=== PATIENT | female | born 1945 | race Caucasian/White ===

== ENCOUNTER 2020-05-10 08:34 | Emergency (ER) | payer MEDICARE, MEDICAID ==
[~2020-05-10] VITALS: Ht 162 cm; Wt 136.0 kg
[2020-05-10] MEDS ORDERED: BRIM5DRO2 OP (09:06)
[2020-05-10] MEDS ORDERED: MAGN400T50 PO (09:06)
[2020-05-10] MEDS ORDERED: CLN.1T PO (09:06)
[2020-05-10] MEDS ORDERED: NLX.4V IH (09:06)
[2020-05-10] MEDS ORDERED: CITA20TA9 PO (09:06)
[2020-05-10] MEDS ORDERED: POLY17PO6 PO (09:06)
[2020-05-10] MEDS ORDERED: SIMV40TA25 PO (09:06)
[2020-05-10] MEDS ORDERED: PANT40TA52 PO (09:06)
[2020-05-10] MEDS ORDERED: CALC1TAB PO (09:06)
[2020-05-10] MEDS ORDERED: METH4TAB PO (09:06)
[2020-05-10] MEDS ORDERED: OXYC-188 PO (09:06)
[2020-05-10] MEDS ORDERED: QUET300T19 PO (09:06)
[2020-05-10] MEDS ORDERED: LORA10TA7 PO (09:06)
[2020-05-10] MEDS ORDERED: ALPR1TAB7 PO (09:06)
[2020-05-10] MEDS ORDERED: RAMI10CA69 PO (09:06)
[2020-05-10] MEDS ORDERED: FLUT15.845 NS (09:06)
[2020-05-10] MEDS ORDERED: RT-ALBUINH INH (09:06)
[2020-05-10 09:07] LABS: BASOPHILS % (AUTO) 0 % (0-10); EOSINOPHILS # (AUTO) 0.4 10^3/uL (0.0-0.3); EOSINOPHILS % (AUTO) 5 % (0-10); HEMATOCRIT 42 % (35-52); LYMPHOCYTES # (AUTO) 1.5 10^3/uL (1.0-4.0); LYMPHOCYTES % (AUTO) 18 % (12-44); MEAN CORPUSCULAR HEMOGLOBIN 31 pg (25-34); MEAN CORPUSCULAR HGB CONC 33 g/dL (32-36); MEAN CORPUSCULAR VOLUME 93 fL (80-99); MONOCYTES # (AUTO) 0.5 10^3/uL (0.0-1.0); MONOCYTES % (AUTO) 6 % (0-12); NEUTROPHILS # (AUTO) 5.9 10^3/uL (1.8-7.8); NEUTROPHILS % (AUTO) 71 % (42-75); PLATELET COUNT 247 10^3/uL (130-400); WHITE BLOOD COUNT 8.4 10^3/uL (4.3-11.0)
[2020-05-10] MEDS ORDERED: LANO454C3 TP (09:07)
[2020-05-10] MEDS ORDERED: [UNRECOGNIZED DRUG - CODE] TP (09:07)
[2020-05-10 09:19] LABS: ALBUMIN 4.1 GM/DL (3.2-4.5); CHLORIDE 103 MMOL/L (98-107); POTASSIUM 4.1 MMOL/L (3.6-5.0); SODIUM 137 MMOL/L (135-145)
[2020-05-10 09:20] LABS: CALCIUM 9.1 MG/DL (8.5-10.1)
[2020-05-10 09:20] LABS: BILIRUBIN,URINE NEGATIVE (NEGATIVE); CLARITY,URINE CLEAR; COLOR,URINE YELLOW; GLUCOSE, URINE (UA) NEGATIVE (NEGATIVE); KETONES,URINE NEGATIVE (NEGATIVE); LEUKOCYTE ESTERASE ,URINE 1+ (NEGATIVE); NITRITE,URINE NEGATIVE (NEGATIVE); PH,URINE 6.5 (5-9); PROTEIN,URINE NEGATIVE (NEGATIVE)
[2020-05-10 09:21] LABS: GLUCOSE 124 MG/DL (70-105)
[2020-05-10 09:22] LABS: TOTAL PROTEIN 7.6 GM/DL (6.4-8.2)
[2020-05-10 09:23] LABS: BILIRUBIN,TOTAL 0.4 MG/DL (0.1-1.0); CARBON DIOXIDE 25 MMOL/L (21-32)
[2020-05-10 09:25] LABS: ALKALINE PHOSPHATASE 87 U/L (40-136); CREATININE SERUM 0.86 MG/DL (0.60-1.30); GFR ESTIMATED > 60
[2020-05-10 09:26] LABS: BUN/CREATININE RATIO 19
[2020-05-10 09:27] LABS: ERYTHROCYTE SEDIMENTATION RATE 22 MM/HR (0-30)
[2020-05-10 09:28] LABS: ALANINE AMINOTRANSFERASE 18 U/L (0-55)
[2020-05-10] MEDS ORDERED: hydrOXYzine (VISTARIL/ATARAX) 25 MG capsule/tablet PO ONE (09:30)
[2020-05-10 09:42] LABS: BACTERIA,URINE TRACE /HPF; RENAL EPITHELIAL CELLS,URINE RARE /HPF
[2020-05-10 09:46] LABS: WAXY CASTS,URINE RARE /LPF
[2020-05-10 09:48] LABS: TSH (THYROID ANALYZER) 5.95 UIU/ML (0.35-4.94)
[2020-05-10 10:37] LABS: FREE T4 (FREE THYROXINE) 0.99 NG/DL (0.70-1.48)
[2020-05-10] MEDS ORDERED: LIDOCAINE 2% VISCOUS 15 ML UDC MM ONE (10:45)
[2020-05-10 10:50] LABS: INR 0.9 (0.8-1.4); PROTHROMBIN TIME PATIENT 12.5 SEC (12.2-14.7)
--- NOTE | 2020-05-10 12:06 | ED General ---
General Chief Complaint: Allergic Reaction Stated Complaint: ALLERGIC REACTION,RASH Nursing Triage Note: PT STATES SHE HAD A RASH AND WAS GIVEN EUCERIN AND CERA VE WHICH BOTH MADE THE RASH WORSE. THE RASH STARTED SEVERAL WEEKS AGO AND IS DIFUSE ON BOTH SIDES OF HER BODY. STATES IT HAS HAPPENED BEFORE AND WAS A STREP OR STAPH INFECTION. Nursing Sepsis Screen: No Definite Risk Source of Information: Patient Exam Limitations: No Limitations History of Present Illness Date Seen by Provider: May 10, 2020 Time Seen by Provider: 08:39 Initial Comments This is 74-year-old woman presents to the emergency room with primary complaint of intensely pruritic rash that started on her abdomen several weeks ago and then spread to her extremities. It has a variable appearance. On the abdomen it appears scaly and dry. On the lower extremity it it appears as linear excoriations and petechiae. On the forearms it has more of a per pruritic appearance. The rash is nonblanching. She has some associated flareups of warmth and erythema around the rash. She has tried numerous treatments. She has taken hydroxyzine for both anxiety and itching. This has been somewhat helpful. She has tried lots of topical therapies including hydrocortisone cream which has not helped. She received a steroid injection yesterday in the clinic which also did not help. She tried the samples listed above which only caused burning of the skin. She cannot find any association of her rash with any exposure or new medication. She seems very anxious and is desperate to get help with the itching. Allergies and Home Medications Allergies Coded Allergies: amoxicillin (Verified Allergy, Intermediate, 05/10/20) cephalexin (Verified Allergy, Intermediate, 05/10/20) ciprofloxacin (Verified Allergy, Intermediate, 05/10/20) clavulanic acid (Verified Allergy, Intermediate, 05/10/20) erythromycin base (Verified Allergy, Intermediate, 05/10/20) hydrocodone (Verified Allergy, Intermediate, 05/10/20) sulfamethoxazole (Verified Allergy, Intermediate, 05/10/20) trimethoprim (Verified Allergy, Intermediate, 05/10/20) Uncoded Allergies: CLAVULANATE (Allergy, Intermediate, 05/10/20) Home Medications ALPRAZolam 0.25 Mg Tab, 0.25 MG PO HS PRN for ITCHING Prescribed by: MAKENNA CRUM on 05/10/20 1210 Albuterol Sulfate 1 Puff Puff, 2 PUFF INH Q4H, (Reported) 1 PUFF = 90 MCG Clonidine HCl 0.1 Mg Tablet, 0.1 MG PO BID, (Reported) Hydroxyzine HCl 25 Mg Tablet, 25 MG PO TID PRN for ITCHING Prescribed by: MAKENNA CRUM on 05/10/20 1210 Lidocaine 113 Gm Gel..gram., 113 GM TP QID PRN for ITCHING Apply thin layer to itchy areas. May sub a similar topical lidocaine/xylocaine gel or cream. Prescribed by: MAKENNA CRUM on 05/10/20 1210 Methylprednisolone 4 Mg Tab.ds.pk, 4 MG PO UD, (Reported) PER DOSE PACK INSTRUCTIONS Oxycodone HCl/Acetaminophen 1 Each Tablet, 1 EACH PO Q4H PRN for PAIN-MODERATE, (Reported) Pantoprazole Sodium 40 Mg Tablet.dr, 40 MG PO DAILY, (Reported) Permethrin 60 Gm Cream..g., 60 GM TP ONCE Prescribed by: MAKENNA CRUM on 05/10/20 1210 Ramipril 10 Mg Capsule, 10 MG PO BID, (Reported) Patient Home Medication List Home Medication List Reviewed: Yes Review of Systems Review of Systems Constitutional: no symptoms reported EENTM: no symptoms reported Respiratory: no symptoms reported Cardiovascular: no symptoms reported Gastrointestinal: no symptoms reported Genitourinary: no symptoms reported : No Musculoskeletal: no symptoms reported Skin: see HPI Psychiatric/Neurological: See HPI Hematologic/Lymphatic: No Symptoms Reported Immunological/Allergic: no symptoms reported Past Lqcagve-Eqhpwc-Fygocs Hx Past Med/Social Hx: Reviewed Nursing Past Med/Soc Hx Patient Social History Alcohol Use: Denies Use Smoking Status: Former Smoker Type Used: Cigarettes Former Smoker, Quit: Apr 18, 1975 Recent Infectious Disease Expo: No Recent Hopitalizations: No Seasonal Allergies Seasonal Allergies: Yes Past Medical History Surgeries: Yes Hysterectomy Respiratory: Yes ("BEGININGS OF COPD") COPD Cardiac: Yes Hypertension Neurological: Yes Neuropathy Reproductive Disorders: No Genitourinary: No Gastrointestinal: No Musculoskeletal: Yes Arthritis, Fibromyalgia, Chronic Back Pain Endocrine: No (Takes Metformin) HEENT: Yes (RT CATARACT SURGERY) Cataract Cancer: No Psychosocial: Yes Anxiety, Depression Integumentary: Yes Recent Skin Changes Physical Exam Vital Signs Vital Signs - First Documented 05/10/20 08:41 Temp 36.1 Pulse 78 Resp 22 B/P (MAP) 177/110 (132) Pulse Ox 96 O2 Delivery Room Air Capillary Refill : Less Than 3 Seconds Height, Weight, BMI Height: '" Weight: lbs. oz. 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 It is more per pruritic on the forearms. On the legs it has more of an excoriated and petechial amaya earance, somewhat linear in a scratch pattern. On the abdomen appears more fine and scaly dry.) Progress/Results/Core Measures Suspected Sepsis Recent Fever Within 48 Hours: No Infection Criteria Present: None New/Unexplained Altered Menta: No Sepsis Screen: No Definite Risk SIRS Temperature: Pulse: 78 Respiratory Rate: 22 Laboratory Tests 05/10/20 09:00: White Blood Count 8.4 Blood Pressure 177 /110 Mean: 132 Laboratory Tests 05/10/20 09:00: Creatinine 0.86, INR Comment 0.9, Platelet Count 247, Total Bilirubin 0.4 Results/Orders Lab Results Laboratory Tests Test 05/10/20 09:00 05/10/20 09:15 Range/Units White Blood Count 8.4 4.3-11.0 10^3/uL Red Blood Count 4.57 3.80-5.11 10^6/uL Hemoglobin 14.0 11.5-16.0 g/dL Hematocrit 42 35-52 % Mean Corpuscular Volume 93 80-99 fL Mean Corpuscular Hemoglobin 31 25-34 pg Mean Corpuscular Hemoglobin Concent 33 32-36 g/dL Red Cell Distribution Width 13.5 10.0-14.5 % Platelet Count 247 130-400 10^3/uL Mean Platelet Volume 10.0 9.0-12.2 fL Immature Granulocyte % (Auto) 0 % Neutrophils (%) (Auto) 71 42-75 % Lymphocytes (%) (Auto) 18 12-44 % Monocytes (%) (Auto) 6 0-12 % Eosinophils (%) (Auto) 5 0-10 % Basophils (%) (Auto) 0 0-10 % Neutrophils # (Auto) 5.9 1.8-7.8 10^3/uL Lymphocytes # (Auto) 1.5 1.0-4.0 10^3/uL Monocytes # (Auto) 0.5 0.0-1.0 10^3/uL Eosinophils # (Auto) 0.4 H 0.0-0.3 10^3/uL Basophils # (Auto) 0.0 0.0-0.1 10^3/uL Immature Granulocyte # (Auto) 0.0 0.0-0.1 10^3/uL Erythrocyte Sedimentation Rate 22 0-30 MM/HR Prothrombin Time 12.5 12.2-14.7 SEC INR Comment 0.9 0.8-1.4 Activated Partial Thromboplast Time 26 24-35 SEC Sodium Level 137 135-145 MMOL/L Potassium Level 4.1 3.6-5.0 MMOL/L Chloride Level 103 98-107 MMOL/L Carbon Dioxide Level 25 21-32 MMOL/L Anion Gap 9 5-14 MMOL/L Blood Urea Nitrogen 16 7-18 MG/DL Creatinine 0.86 0.60-1.30 MG/DL Estimat Glomerular Filtration Rate > 60 BUN/Creatinine Ratio 19 Glucose Level 124 H 70-105 MG/DL Calcium Level 9.1 8.5-10.1 MG/DL Corrected Calcium 9.0 8.5-10.1 MG/DL Total Bilirubin 0.4 0.1-1.0 MG/DL Aspartate Amino Transf (AST/SGOT) 20 5-34 U/L Alanine Aminotransferase (ALT/SGPT) 18 0-55 U/L Alkaline Phosphatase 87 40-136 U/L C-Reactive Protein High Sensitivity 0.41 0.00-0.50 MG/DL Total Protein 7.6 6.4-8.2 GM/DL Albumin 4.1 3.2-4.5 GM/DL Free Thyroxine 0.99 0.70-1.48 NG/DL TSH [place] Testing 5.95 H 0.35-4.94 UIU/ML Urine Color YELLOW Urine Clarity CLEAR Urine pH 6.5 5-9 Urine Specific [place] 1.015 L 1.016-1.022 Urine Protein NEGATIVE NEGATIVE Urine Glucose (UA) NEGATIVE NEGATIVE Urine Ketones NEGATIVE NEGATIVE Urine Nitrite NEGATIVE NEGATIVE Urine Bilirubin NEGATIVE NEGATIVE Urine Urobilinogen 0.2 < = 1.0 MG/DL Urine Leukocyte Esterase 1+ H NEGATIVE Urine RBC (Auto) NEGATIVE NEGATIVE Urine RBC NONE /HPF Urine WBC 5-10 H /HPF Urine Squamous Epithelial Cells 2-5 /HPF Urine Renal Epithelial Cells RARE /HPF Urine Crystals NONE /LPF Urine Bacteria TRACE /HPF Urine Casts PRESENT /LPF Urine Waxy Casts RARE H /LPF Urine Mucus SMALL H /LPF Urine Other /HPF Urine Culture Indicated YES My Orders Orders - MAKENNA LANG MD Cbc With Automated Diff (05/10/20 08:55) Comprehensive Metabolic Panel (05/10/20 08:55) Hs C Reactive Protein (05/10/20 08:55) Thyroid Analyzer (05/10/20 08:55) Ua Culture If Indicated (05/10/20 08:55) Erythrocyte Sedimentation Rate (05/10/20 08:55) Hydroxyzine Cap/Tab (Vistaril) (05/10/20 09:30) Urine Culture (05/10/20 09:15) Free T4 (Free Thyroxine) (05/10/20 09:00) Lidocaine 2% Viscous 15 Ml (Xylocaine Vi (05/10/20 10:45) Protime With Inr (05/10/20 10:38) Partial Thromboplastin Time (05/10/20 10:38) Medications Given in ED Current Medications Medications Dose Ordered Sig/Cait Route Start Time Stop Time Status Last Admin Dose Admin Hydroxyzine Pamoate 25 mg ONCE ONCE PO 05/10/20 09:30 05/10/20 09:32 DC 05/10/20 09:46 25 MG Lidocaine HCl 5 ml ONCE ONCE MM 05/10/20 10:45 05/10/20 10:46 DC 05/10/20 10:38 5 ML Vital Signs/I&O 05/10/20 05/10/20 08:41 12:16 Temp 36.1 36.1 Pulse 78 75 Resp 22 20 B/P (MAP) 177/110 (132) 159/92 (132) Pulse Ox 96 96 O2 Delivery Room Air Room Air Capillary Refill : Less Than 3 Seconds Blood Pressure Mean: 132 Progress Note : Progress Note Because of the paraparetic nature of the rash, labs were obtained. They were unremarkable. Hydroxyzine was given in the ER which did seem to calm her anxiety but did not help the itching much. Lidocaine jelly was applied. At first she did not think this was effective because it burned going on and then the dry jelly cause tightness of the skin and irritation. However, after she washed the film off the itching was gone. I question the presence of scabies due to some of the linear appearance. It is worth trying permethrin which was prescribed. Since she is having trouble finding anything that helps with the itching, I prescribed her some Xanax to use if she has extreme agitation from the itching. She intends to follow-up with Dr. Yepez in clinic which I str ongly encouraged. I encouraged her to do a medication review in her follow-up to ensure none of her medications are causing the rash. Ultimately, I think her purpura and petechiae are mainly due from intense scratching rather than the primary pathology. See discharge instructions for more discussion. Departure Impression Primary Impression: Rash Additional Impression: Pruritus Disposition: HOME, SELF-CARE Condition: Improved Departure-Patient Inst. Decision time for Depature: 12:01 Referrals: NO,LOCAL PHYSICIAN (PCP) Primary Care Physician TOM YEPEZ MD Patient Instructions: Skin Rash Add. Discharge Instructions: Follow-up with your primary care provider or Dr. Yepez's clinic soon as possible. For primary treatment of itching use hydroxyzine as prescribed. This should also help with anxiety. Try permethrin lotion for treatment of possible scabies. This is applied to all affected areas and left on overnight. Wash off in the morning. Cover affected areas first. With any remaining lotion try to cover as much of your body as possible. The topical lidocaine jelly may be used to help numb your skin as well. Apply a very thin layer to affected areas. For extreme itching or agitation that is not controlled by other medications, try using the Xanax as directed. There was some suggestion of urinary tract infection on your urine specimen. You should contact your primary care provider in about 3 days to review the urine culture result. If you are not able to review the urine culture result through your primary care office, then contact the ER. Call with questions or concerns. Return to the ER if you have worsening symptoms. All discharge instructions reviewed with patient and/or family. Voiced understanding. Scripts Lidocaine (Topicaine 5) 113 Gm Gel..gram. 113 GM TP QID PRN for ITCHING, #1 TUBE Apply thin layer to itchy areas. May sub a similar topical lidocaine/xylocaine gel or cream. Prov: MAKENNA LANG MD 05/10/20 Permethrin (Permethrin) 60 Gm Cream..g. 60 GM TP ONCE, #1 TUBE Prov: MAKENNA LANG MD 05/10/20 ALPRAZolam (XANAX TABLET) 0.25 Mg Tab 0.25 MG PO HS PRN for ITCHING, #10 TAB Prov: MAKENNA LANG MD 05/10/20 Hydroxyzine HCl (Hydroxyzine HCl) 25 Mg Tablet 25 MG PO TID PRN for ITCHING, #30 TAB Prov: MAKENNA LANG MD 05/10/20 Copy Copies To 1: TOM YEPEZ MD, JOSHUA T MD May 10, 2020 12:06
[2020-05-10] MEDS ORDERED: LIDO113G4 TP (12:10)
[2020-05-10] MEDS ORDERED: HYDR-700 PO (12:10)
[2020-05-10] MEDS ORDERED: PERM60CR4 TP (12:10)
[2020-05-10] MEDS ORDERED: ALPR.25T PO (12:10)
[2020-05-10 12:16] VITALS: BP 159/92
[2020-05-10] MEDS ORDERED: PRD20T PO (19:51)
== END 2020-05-10 12:22 | disposition home or self-care (01) ==
LOC: EDUNIT# 08:34 → ER 08:37
DX: L29.9 Pruritus, unspecified (principal); I10 Essential (primary) hypertension; F41.9 Anxiety disorder, unspecified; F32.9 Major depressive disorder, single episode, unspecified; J44.9 Chronic obstructive pulmonary disease, unspecified; Z87.891 Personal history of nicotine dependence; Z79.52 Long term (current) use of systemic steroids; Z88.1 Allergy status to other antibiotic agents; Z88.2 Allergy status to sulfonamides; Z88.8 Allergy status to other drugs, medicaments and biological substances; Z88.5 Allergy status to narcotic agent
CPT/HCPCS: 36415; 80053; 81000; 84439; 84443; 85025; 85610; 85652; 85730; 86141; 87088

== ENCOUNTER 2020-05-10 19:23 | Emergency (ER) | payer MEDICARE, MEDICAID ==
[~2020-05-10] VITALS: Ht 162.5 cm; Wt 136.0 kg
[~2020-05-10 19:23] MED LIST: ALPR.25T PO; ALPR1TAB7 PO; BRIM5DRO2 OP; CALC1TAB PO; CITA20TA9 PO; CLN.1T PO; FLUT15.845 NS; HYDR-700 PO; LANO454C3 TP; LIDO113G4 TP; LORA10TA7 PO; MAGN400T50 PO; METH4TAB PO; NLX.4V IH; OXYC-188 PO; PANT40TA52 PO; PERM60CR4 TP; POLY17PO6 PO; QUET300T19 PO; RAMI10CA69 PO; RT-ALBUINH INH; SIMV40TA25 PO; [UNRECOGNIZED DRUG - CODE] TP
[2020-05-10] MEDS ORDERED: methylPREDNISolone 125 MG (Solu-MEDROL) VIAL IVP ONE (19:45)
[2020-05-10] MEDS ORDERED: diphenhydrAMINE 50 MG/ML INJ (BENADRYL) IVP ONE (19:45)
[2020-05-10] MEDS ORDERED: FAMOTIDINE 20MG/2ML IV (PEPCID) IVP ONE (19:45)
[2020-05-10] MEDS ORDERED: PRD20T PO (19:51)
--- NOTE | 2020-05-10 19:51 | ED General ---
General Chief Complaint: Allergic Reaction Stated Complaint: ALLERGIC REACTION Source of Information: Patient Exam Limitations: No Limitations History of Present Illness Date Seen by Provider: May 10, 2020 Time Seen by Provider: 19:47 Initial Comments To ER with reports of allergic reaction. Patient was seen here earlier today for the same and given topical lidocaine cream, permethrin cream, Xanax, hydroxyzine. She went home and took a nap at about 3 PM and awakened with some erythema to her cheeks and itching and burning on her skin. Timing/Duration: 1-2 Days Severity: Moderate Associated Systoms: Denies Symptoms Allergies and Home Medications Allergies Coded Allergies: amoxicillin (Verified Allergy, Intermediate, 05/10/20) cephalexin (Verified Allergy, Intermediate, 05/10/20) ciprofloxacin (Verified Allergy, Intermediate, 05/10/20) clavulanic acid (Verified Allergy, Intermediate, 05/10/20) erythromycin base (Verified Allergy, Intermediate, 05/10/20) hydrocodone (Verified Allergy, Intermediate, 05/10/20) sulfamethoxazole (Verified Allergy, Intermediate, 05/10/20) trimethoprim (Verified Allergy, Intermediate, 05/10/20) Uncoded Allergies: CLAVULANATE (Allergy, Intermediate, 05/10/20) Home Medications ALPRAZolam 0.25 Mg Tab, 0.25 MG PO HS PRN for ITCHING Prescribed by: MAKENNA CRUM on 05/10/20 1210 Albuterol Sulfate 1 Puff Puff, 2 PUFF INH Q4H, (Reported) 1 PUFF = 90 MCG Clonidine HCl 0.1 Mg Tablet, 0.1 MG PO BID, (Reported) Hydroxyzine HCl 25 Mg Tablet, 25 MG PO TID PRN for ITCHING Prescribed by: MAKENNA CRUM on 05/10/20 1210 Lidocaine 113 Gm Gel..gram., 113 GM TP QID PRN for ITCHING Apply thin layer to itchy areas. May sub a similar topical lidocaine/xylocaine gel or cream. Prescribed by: MAKENNA CRUM on 05/10/20 1210 Methylprednisolone 4 Mg Tab.ds.pk, 4 MG PO UD, (Reported) PER DOSE PACK INSTRUCTIONS Oxycodone HCl/Acetaminophen 1 Each Tablet, 1 EACH PO Q4H PRN for PAIN-MODERATE, (Reported) Pantoprazole Sodium 40 Mg Tablet.dr 40 MG PO DAILY, (Reported) Permethrin 60 Gm Cream..g., 60 GM TP ONCE Prescribed by: MAKENNA CRUM on 05/10/20 1210 Ramipril 10 Mg Capsule, 10 MG PO BID, (Reported) Patient Home Medication List Home Medication List Reviewed: Yes Review of Systems Review of Systems Constitutional: see HPI EENTM: see HPI Respiratory: no symptoms reported Cardiovascular: no symptoms reported Genitourinary: no symptoms reported Musculoskeletal: no symptoms reported Skin: see HPI Psychiatric/Neurological: No Symptoms Reported Hematologic/Lymphatic: No Symptoms Reported Past Merpocf-Ruupcf-Wfysez Hx Patient Social History Type Used: Cigarettes Former Smoker, Quit: Apr 18, 1975 Recent Hopitalizations: No Seasonal Allergies Seasonal Allergies: Yes Past Medical History Surgeries: Yes Hysterectomy Respiratory: Yes ("BEGININGS OF COPD") COPD Cardiac: Yes Hypertension Neurological: Yes Neuropathy Reproductive Disorders: No Genitourinary: No Gastrointestinal: No Musculoskeletal: Yes Arthritis, Fibromyalgia, Chronic Back Pain Endocrine: No (Takes Metformin) HEENT: Yes (RT CATARACT SURGERY) Cataract Cancer: No Psychosocial: Yes Anxiety, Depression Integumentary: Yes Recent Skin Changes Physical Exam Vital Signs Capillary Refill : Height, Weight, BMI Height: '" Weight: lbs. oz. kg; 51.00 BMI Method: General Appearance: No Apparent Distress, WD/WN Eyes: Bilateral Eye Normal Inspection, Bilateral Eye PERRL HEENT: PERRL/EOMI, TMs Normal, Normal ENT Inspection Respiratory: No Accessory Muscle Use, No Respiratory Distress Cardiovascular: Regular Rate, Rhythm, Normal Peripheral Pulses Gastrointestinal: Normal Bowel Sounds, Non Tender, Soft Extremity: Normal Capillary Refill, Normal Range of Motion Neurologic/Psychiatric: Alert, Oriented x3 Skin: Normal Color, Warm/Dry, Other (Excoriation to the anterior legs and dorsum of each arm. Each arm does have a bit of erythema.) Progress/Results/Core Measures Suspected Sepsis SIRS Temperature: Pulse: Respiratory Rate: Blood Pressure / Mean: Results/Orders Vital Signs/I&O Capillary Refill : Departure Communication (Admissions) Ordered Solu-Medrol Pepcid and Benadryl here. Will discharge home with a prescription for more prednisone to fill tomorrow. Impression Primary Impression: Pruritus Additional Impression: Rash Disposition: 01 HOME, SELF-CARE Condition: Stable Departure-Patient Inst. Decision time for Depature: 19:49 Referrals: NO,LOCAL PHYSICIAN (PCP/Family) Primary Care Physician Patient Instructions: Skin Rash (DC) Add. Discharge Instructions: 1. Fill the additional steroid tomorrow. All discharge instructions reviewed with patient and/or family. Voiced understanding. Scripts Prednisone (Prednisone) 20 Mg Tab 40 MG PO DAILY, #2 TAB 0 Refills Prov: SON PORRAS APRN 05/10/20 SON PORRAS APRN May 10, 2020 19:51
[2020-05-10] MEDS ORDERED: diphenhydrAMINE 50 MG/ML INJ (BENADRYL) IM ONE (20:00)
[2020-05-10] MEDS ORDERED: FAMOTIDINE 20 MG (PEPCID) TABLET PO ONE (20:00)
[2020-05-10 21:16] VITALS: BP 149/82
== END 2020-05-10 20:12 | disposition home or self-care (01) ==
LOC: EDUNIT# 19:23 → ER 19:25
DX: L29.9 Pruritus, unspecified (principal); R21 Rash and other nonspecific skin eruption; F41.9 Anxiety disorder, unspecified; I10 Essential (primary) hypertension; J44.9 Chronic obstructive pulmonary disease, unspecified; G89.29 Other chronic pain; M54.9 Dorsalgia, unspecified; Z88.1 Allergy status to other antibiotic agents; Z88.2 Allergy status to sulfonamides; Z88.5 Allergy status to narcotic agent; Z87.891 Personal history of nicotine dependence; Z79.82 Long term (current) use of aspirin; Z79.891 Long term (current) use of opiate analgesic
CPT/HCPCS: 99284

== ENCOUNTER 2020-07-20 23:08 | Observation (INO) | payer MEDICARE, MEDICAID ==
[~2020-07-20] VITALS: Ht 162.6 cm; Wt 119.6 kg
[~2020-07-20 23:08] MED LIST changes: -FLUT15.845 NS; +FLUT15.845 NSEACH; +PRD20T PO
[2020-07-20 23:10] VITALS: BP 149/96
--- NOTE | 2020-07-20 23:33 | ED Cardiac General ---
History of Present Illness General Stated Complaint: PALPITATIONS,WEAKNESS Source: patient Exam Limitations: no limitations History of Present Illness Date Seen by Provider: Jul 20, 2020 Time Seen by Provider: 23:02 Initial Comments Patient presents the ER by [facility] with chief complaint that she was having some palpitations after laying down for bed and felt very weak and says she had a hard time even lifting her arms up to touch the wall. She is not having any one-sided weakness, slurred speech or facial droop per her brother who she lives with. She has no history of stroke or heart disease. She is been having difficulty with word searching and confusion for the past 2 months and has been working with Dr. De La Cruz outpatient on this. She has a difficult time giving a meaningful history. Patient states she has been to the ER a few times in the past couple months for a skin rash which she thought was may be eczema or allergies. She also was treated with permethrin for scabies. She went to urgent care today because of her difficulty with word searching but cannot tell us anything further about that. EMS reports they saw few PVCs but no other significant dysrhythmia. Brother reports she went to urgent care today and was told she had some kind of infection in her bloodstream. She is on Macrobid from a couple days ago for UTI by her PCP. She has been dealing with a skin rash for the past couple months and has a history of heart failure. No history of coronary disease or stroke. Brother says last known well time was 1900 however she was knocking on the wall to get his attention at 2100 and that is when he noticed she was having difficulty with word searching. The brother says the confusion and word searching is all new tonight. He did not notice any slurred speech, facial droop. Allergies and Home Medications Allergies Coded Allergies: amoxicillin (Verified Allergy, Intermediate, 05/10/20) cephalexin (Verified Allergy, Intermediate, 05/10/20) ciprofloxacin (Verified Allergy, Intermediate, 05/10/20) clavulanic acid (Verified Allergy, Intermediate, 05/10/20) erythromycin base (Verified Allergy, Intermediate, 05/10/20) hydrocodone (Verified Allergy, Intermediate, 05/10/20) sulfamethoxazole (Verified Allergy, Intermediate, 05/10/20) trimethoprim (Verified Allergy, Intermediate, 05/10/20) Uncoded Allergies: CLAVULANATE (Allergy, Intermediate, 05/10/20) Home Medications ALPRAZolam 0.25 Mg Tab, 0.25 MG PO HS PRN for ITCHING Prescribed by: MAKENNA CRUM on 05/10/20 1210 Albuterol Sulfate 1 Puff Puff, 2 PUFF INH Q4H, (Reported) 1 PUFF = 90 MCG Clonidine HCl 0.1 Mg Tablet, 0.1 MG PO BID, (Reported) Hydroxyzine HCl 25 Mg Tablet, 25 MG PO TID PRN for ITCHING Prescribed by: MAKENNA CRUM on 05/10/20 1210 Lidocaine 113 Gm Gel..gram., 113 GM TP QID PRN for ITCHING Apply thin layer to itchy areas. May sub a similar topical lidocaine/xylocaine gel or cream. Prescribed by: MAKENNA CRUM on 05/10/20 1210 Methylprednisolone 4 Mg Tab.ds.pk, 4 MG PO UD, (Reported) PER DOSE PACK INSTRUCTIONS Oxycodone HCl/Acetaminophen 1 Each Tablet, 1 EACH PO Q4H PRN for PAIN-MODERATE, (Reported) Pantoprazole Sodium 40 Mg Tablet.dr, 40 MG PO DAILY, (Reported) Permethrin 60 Gm Cream..g., 60 GM TP ONCE Prescribed by: MAKENNA CRUM on 05/10/201209 Prednisone 20 Mg Tab, 40 MG PO DAILY Prescribed by: SON PORRAS on 05/10/201950 Ramipril 10 Mg Capsule, 10 MG PO BID, (Reported) Patient Home Medication List Home Medication List Reviewed: Yes Review of Systems Review of Systems Constitutional: No chills, No diaphoresis EENTM: No Blurred Vision, No Double Vision Respiratory: Denies Cough, Denies Shortness of Air Cardiovascular: Denies Chest Pain, Denies Lightheadedness Gastrointestinal: Denies Abdominal Pain, Denies Constipated, Denies Diarrhea, Denies Nausea Genitourinary: Denies Burning, Denies Discharge Musculoskeletal: No back pain, No joint pain All Other Systems Reviewed Negative Unless Noted: Yes Past Pzijqmq-Elvuyc-Kajcgp Hx Patient Social History Alcohol Use: Denies Use Smoking Status: Former Smoker Type Used: Cigarettes Former Smoker, Quit: Apr 18, 1975 Recent Hopitalizations: No Seasonal Allergies Seasonal Allergies: Yes Past Medical History Surgeries: Yes Hysterectomy Respiratory: Yes ("BEGININGS OF COPD") COPD Cardiac: Yes Cardiomyopathy, Hypertension Neurological: Yes Neuropathy Reproductive Disorders: No Genitourinary: No Gastrointestinal: No Musculoskeletal: Yes Arthritis, Fibromyalgia, Chronic Back Pain Endocrine: No (Takes Metformin) HEENT: Yes (RT CATARACT SURGERY) Cataract Cancer: No Psychosocial: Yes Anxiety, Depression Integumentary: Yes Recent Skin Changes Physical Exam Vital Signs Vital Signs - First Documented Capillary Refill : Height, Weight, BMI Height: '" Weight: lbs. oz. kg; 51.00 BMI Method: General Appearance: Anxious, Mild Distress, Obese HEENT: TMs Normal, Pharynx Normal, Moist Mucous Membranes Neck: Full Range of Motion, Normal Inspection, Non Tender, Supple Respiratory: Lungs Clear, Normal Breath Sounds, No Accessory Muscle Use, No Respiratory Distress Cardiovascular: Regular Rate, Rhythm, No Edema, Normal Peripheral Pulses Gastrointestinal: Normal Bowel Sounds, Non Tender, Soft Neurologic/Psychiatric: Alert, No Motor/Sensory Deficits, Other (Oriented to person, place time but not situation) Skin: Warm/Dry, Rash (Eczematous rash all 4 extremities, mild) Progress/Results/Core Measures Results/Orders Lab Results Laboratory Tests Test 07/20/20 23:33 07/20/20 23:34 07/20/20 23:55 Range/Units Glucometer 100 70-110 MG/DL Urine Color YELLOW Urine Clarity CLEAR Urine pH 6.0 5-9 Urine Specific [place] <=1.005 1.016-1.022 Urine Protein NEGATIVE NEGATIVE Urine Glucose (UA) NEGATIVE NEGATIVE Urine Ketones TRACE H NEGATIVE Urine Nitrite NEGATIVE NEGATIVE Urine Bilirubin NEGATIVE NEGATIVE Urine Urobilinogen 0.2 < = 1.0 MG/DL Urine Leukocyte Esterase 1+ H NEGATIVE Urine RBC (Auto) 2+ H NEGATIVE Urine RBC 2-5 H /HPF Urine WBC 2-5 /HPF Urine Squamous Epithelial Cells 0-2 /HPF Urine Crystals NONE /LPF Urine Bacteria TRACE /HPF Urine Casts NONE /LPF Urine Mucus NEGATIVE /LPF Urine Culture Indicated NO White Blood Count 6.4 4.3-11.0 10^3/uL Red Blood Count 4.70 3.80-5.11 10^6/uL Hemoglobin 14.7 11.5-16.0 g/dL Hematocrit 43 35-52 % Mean Corpuscular Volume 92 80-99 fL Mean Corpuscular Hemoglobin 31 25-34 pg Mean Corpuscular Hemoglobin Concent 34 32-36 g/dL Red Cell Distribution Width 13.6 10.0-14.5 % Platelet Count 177 130-400 10^3/uL Mean Platelet Volume 11.0 9.0-12.2 fL Immature Granulocyte % (Auto) 1 % Neutrophils (%) (Auto) 70 42-75 % Lymphocytes (%) (Auto) 20 12-44 % Monocytes (%) (Auto) 9 0-12 % Eosinophils (%) (Auto) 0 0-10 % Basophils (%) (Auto) 0 0-10 % Neutrophils # (Auto) 4.5 1.8-7.8 10^3/uL Lymphocytes # (Auto) 1.3 1.0-4.0 10^3/uL Monocytes # (Auto) 0.6 0.0-1.0 10^3/uL Eosinophils # (Auto) 0.0 0.0-0.3 10^3/uL Basophils # (Auto) 0.0 0.0-0.1 10^3/uL Immature Granulocyte # (Auto) 0.0 0.0-0.1 10^3/uL Percent Immature Platelet Fraction 4.4 0.0-7.6 % Sodium Level 140 135-145 MMOL/L Potassium Level 3.8 3.6-5.0 MMOL/L Chloride Level 103 98-107 MMOL/L Carbon Dioxide Level 20 L 21-32 MMOL/L Anion Gap 17 H 5-14 MMOL/L Blood Urea Nitrogen 16 7-18 MG/DL Creatinine 0.94 0.60-1.30 MG/DL Estimat Glomerular Filtration Rate 58 BUN/Creatinine Ratio 17 Glucose Level 111 H 70-105 MG/DL Calcium Level 9.9 8.5-10.1 MG/DL Corrected Calcium 10.0 8.5-10.1 MG/DL Total Bilirubin 0.4 0.1-1.0 MG/DL Aspartate Amino Transf (AST/SGOT) 22 5-34 U/L Alanine Aminotransferase (ALT/SGPT) 16 0-55 U/L Alkaline Phosphatase 93 40-136 U/L Troponin I < 0.028 <0.028 NG/ML B-Type Natriuretic Peptide 183.3 H <100.0 PG/ML Total Protein 7.2 6.4-8.2 GM/DL Albumin 3.9 3.2-4.5 GM/DL My Orders Orders - CROW CURRIE Code/Resuscitation (07/20/20 23:20) Cbc With Automated Diff (07/20/20 23:20) Comprehensive Metabolic Panel (07/20/20 23:20) Troponin I (07/20/20 23:20) Ua Culture If Indicated (07/20/20 23:20) Chest 1 View, Ap/Pa Only (07/20/20 23:20) Ekg Tracing (07/20/20 23:20) Nothing By Mouth (07/21/20 Breakfast) Accucheck Stat ONCE (07/20/20 23:20) Ed Iv/Invasive Line Start (07/20/20 23:20) Ed Iv/Invasive Line Start (07/20/20 23:20) Vital Signs Stroke Patient Q15M (07/20/20 23:20) O2 (07/20/20 23:20) Intake & Output 06,14,22 (07/20/20 23:20) Monitor-Rhythm Ecg Trace Only (07/20/20 23:20) Dysphagia Screening Tool (07/20/20 23:20) Lipid Panel (07/21/20 06:00) BNP (07/20/20 23:57) Ct Head Wo-R/O Stroke (07/21/20 00:01) Ct Angio Head/Neck (07/21/20 00:46) Iohexol Injection (Omnipaque 350 Mg/Ml 1 (07/21/20 01:45) Received Contrast (Hold Metformin- Contr (07/21/20 01:45) Sodium Chloride Flush (Catheter Flush Sy (07/21/20 01:45) Ns (Ivpb) (Sodium Chloride 0.9% Ivpb Bag (07/21/20 01:45) Vital Signs/I&O 07/20/20 07/20/20 07/20/20 23:09 23:09 23:10 Temp 36.0 Pulse 92 92 Resp 18 18 B/P (MAP) 149/96 (113) 149/96 Pulse Ox 99 99 99 O2 Delivery Room Air Room Air Progress Progress Note #1: Time: 23:35 Progress Note Last known well time 1900. Certainly stroke is on the differential however some other form of an encephalopathy such as metabolic or infectious is a possibility. She is having no fever. Is not having a significant tachycardia with a heart rate in the 80s normal nonlabored breathing and oxygen saturations in the high 90s on room air. Her blood pressure is 149/93. Blood sugar is 100. She is not diabetic. This does appear to be a an acute encephalopathy so we will get a CT of her head start with and give her an NIH score of one-point for dysarthria and consult with neurology. Progress Note #2: Time: 00:[address] negative for hemorrhage. Sugar is 100. Her dysarthria has not changed since she got here. She has no new neurologic symptoms or lateralizing symptoms. Certainly an ischemic stroke is possible however she is able to talk to us about her fibromyalgia her skin rash and other medical complaints without issue but has difficulty expressing why she is here tonight. Because of the acuteness of this expression of confusion we have considered stroke and will consult with stroke neurology at [facility]. She does not have anything that looks like an infectious etiology either. Discussed the case with Dr. Delong, [facility] stroke neurologist on-call and she feels it is always possible she could be having a stroke. The patient is outside of the window for TPA. She feels with a low score that she would not be a candidate for thrombectomy. She still recommends a CT A and MRI in the morning as well as observation work-up. Initial ECG Impression Date: Jul 20, 2020 Initial ECG Impression Time: 23:21 Initial ECG Rate: 88 Initial ECG Rhythm: Normal Sinus Initial ECG Intervals: IL (498) Initial ECG Impression: Normal, Nonspecific Changes Comment Sinus rhythm with left bundle branch block and no clinically relevant ST elevation or depression. Diagnostic Imaging Diagonstic Imaging: Xray Plain Films/CT/US/NM/MRI: chest Comments No acute cardiopulmonary process on 1 view chest x-ray. Reviewed: Reviewed by Me Diagonstic Imaging: CT Plain Films/CT/US/NM/MRI: head Comments No acute intracranial hemorrhage mass-effect midline shift. Mildly enlarged left ventricle without midline shift or tumor. No calvarial fracture. Reviewed: Reviewed [place] Hawk Study, Reviewed by Me Diagonstic Imaging: CT (a) Plain Films/CT/US/NM/MRI: head (neck) Comments No acute findings. No significant carotid or cervical vertebral artery disease. Reviewed: Reviewed [place] Study, Reviewed by Me Departure Communication (Admissions) Time/Spoke to Admitting Phy: 02:10 Discussed the case with Dr. Koenig and he agrees to observe the patient with MRI in the morning. Impression Primary Impression: Encephalopathy acute Additional Impression: CVA (cerebral vascular accident) Qualified Codes: I63.9 - Cerebral infarction, unspecified Disposition: ADMITTED INPATIENT Condition: Stable Admissions Decision to Admit Reason: Admit from ER (General) Decision to Admit/Date: Jul 21, 2020 Time/Decision to Admit Time: 00:30 Departure-Patient Inst. Referrals: NO,LOCAL PHYSICIAN (PCP/Family) Primary Care Physician Stroke Onset of Symptoms Date of Onset of Symptoms: Jul 20, 2020 Time of Symptom Onset: 19:00 Symptoms onset unknown: Yes NIH Stroke Scale Assessment Select: Initial Level of Consciousness: 0=Alert (0), Level of Consciousness- Questions: 0=Answers both month/age (0), LOC Commands: 0=Performs both tasks (0), Gaze: Normal (0), Visual Sosa: 0=No visual loss (0), Facial Movement (Facial Paresis): 0=Normal symmetrical mnt (0), Motor Function-Arms Right: 0=No drift (0), Motor Function-Arms Left: 0=No drift (0), Motor Function-Legs Right: 0=No drift (0), Motor Function-Legs Left: 0=No drift (0), Limb Ataxia: 0=Absent (0), Sensory: 0=Normal:no loss (0), Best Language: 0=No aphasia (0), Dysarthria: 1=Mild to moderate loss (1), Extinction & Inattention: 0=No abnormality (0), Total: 1 Stroke Thrombolytic Exclusion Age 18 or Over: Yes Acute intenal hemorrhage: No History of CVA: No Uncontrolled Coagulation Defec: No Intracranial Hemorrhage: No Severe Hypertension: No GI or Bleed: No Subarachnoid Hemorrhage: No Intracranial Neoplasm/Aneurysm: No Oral Anticoagulants: No Surgery or Trauma: No Puncture of Non-Compressible V: No Recent CPR: No Diabetic Hemorrhagic Retinopat: No Organ Biopsy: No Recent Obstetric Delivery: No Glucose: No (100) Significant Hepatic Dysfunctio: No NIH Stoke Scale >22: No Bacterial Endocarditis: No Pericarditis: No Improving Symptoms: No Platelets: No TPA Contraindication: No IV - TPa Received IV - TPa Procedure Performed?: No (Benefit outweighed by risk) CROW CURRIE J Jul 20, 2020 23:33
[2020-07-20 23:41] LABS: BILIRUBIN,URINE NEGATIVE (NEGATIVE); CLARITY,URINE CLEAR; COLOR,URINE YELLOW; GLUCOSE, URINE (UA) NEGATIVE (NEGATIVE); KETONES,URINE TRACE (NEGATIVE); LEUKOCYTE ESTERASE ,URINE 1+ (NEGATIVE); NITRITE,URINE NEGATIVE (NEGATIVE); PROTEIN,URINE NEGATIVE (NEGATIVE)
[2020-07-20 23:49] LABS: BACTERIA,URINE TRACE /HPF; SQUAMOUS EPITHELIAL CELL,UR 0-2 /HPF
[2020-07-21 00:02] LABS: BASOPHILS % (AUTO) 0 % (0-10); EOSINOPHILS % (AUTO) 0 % (0-10); HEMATOCRIT 43 % (35-52); HEMOGLOBIN 14.7 g/dL (11.5-16.0); LYMPHOCYTES # (AUTO) 1.3 10^3/uL (1.0-4.0); LYMPHOCYTES % (AUTO) 20 % (12-44); MEAN CORPUSCULAR HEMOGLOBIN 31 pg (25-34); MEAN CORPUSCULAR HGB CONC 34 g/dL (32-36); MEAN CORPUSCULAR VOLUME 92 fL (80-99); MONOCYTES # (AUTO) 0.6 10^3/uL (0.0-1.0); MONOCYTES % (AUTO) 9 % (0-12); NEUTROPHILS # (AUTO) 4.5 10^3/uL (1.8-7.8); NEUTROPHILS % (AUTO) 70 % (42-75); PLATELET COUNT 177 10^3/uL (130-400); WHITE BLOOD COUNT 6.4 10^3/uL (4.3-11.0)
[2020-07-21 00:14] LABS: ALBUMIN 3.9 GM/DL (3.2-4.5); CHLORIDE 103 MMOL/L (98-107); POTASSIUM 3.8 MMOL/L (3.6-5.0); SODIUM 140 MMOL/L (135-145)
[2020-07-21 00:16] LABS: CALCIUM 9.9 MG/DL (8.5-10.1)
[2020-07-21 00:17] LABS: GLUCOSE 111 MG/DL (70-105); TOTAL PROTEIN 7.2 GM/DL (6.4-8.2)
[2020-07-21 00:18] LABS: CARBON DIOXIDE 20 MMOL/L (21-32)
[2020-07-21 00:19] LABS: BILIRUBIN,TOTAL 0.4 MG/DL (0.1-1.0)
[2020-07-21 00:20] LABS: ALKALINE PHOSPHATASE 93 U/L (40-136)
[2020-07-21 00:21] LABS: CREATININE SERUM 0.94 MG/DL (0.60-1.30); GFR ESTIMATED 58
[2020-07-21 00:22] LABS: BUN/CREATININE RATIO 17
[2020-07-21 00:23] LABS: ALANINE AMINOTRANSFERASE 16 U/L (0-55)
[2020-07-21] MEDS ORDERED: HOLD METFORMIN - RECEIVED CONTRAST 20 ML VIAL IV SCH (01:45)
[2020-07-21] MEDS ORDERED: IOHEXOL 350 MG/ML 100 ML (OMNIPAQUE 350) VIAL IV ONE (01:45)
[2020-07-21] MEDS ORDERED: CATHETER FLUSH 10 ML SYR IV PRN (01:45)
[2020-07-21] MEDS ORDERED: NS 100 ML (IVPB) BAG IV ONE (01:45)
[2020-07-21 03:30] VITALS: BP 146/67
[2020-07-21] MEDS ORDERED: ACETAMINOPHEN 325 MG TABLET PO PRN (03:30)
[2020-07-21] MEDS ORDERED: ONDANSETRON 4 MG/2 ML (SDV) Z0FRAN IVP PRN (03:30)
--- NOTE | 2020-07-21 05:13 | Diagnostic Imaging Report ---
INDICATION: Altered mental status. Frontal chest obtained at 1143 p.m. Heart is normal in size. Mediastinal silhouette is unremarkable. The lungs are clear except for some minimal linear scarring or atelectasis in the left midlung. There is no pneumothorax or pleural fluid. IMPRESSION: Minimal linear scarring or atelectasis in left midlung. Otherwise negative study. Dictated by: Dictated on workstation # [id number]
--- NOTE | 2020-07-21 06:20 | Diagnostic Imaging Report ---
PROCEDURE: CT head wo r/o stroke. TECHNIQUE: Multiple contiguous axial images were obtained through the brain without the use of intravenous contrast. Auto Exposure Controls were utilized during the CT exam to meet ALARA standards for radiation dose reduction. INDICATION: Stroke. Altered mental status. Difficulty concentrating. COMPARISON: None. FINDINGS: No CT evidence of a territorial infarction. No intracranial hemorrhage, mass effect, hydrocephalus or extra-axial fluid collections. Moderate generalized cerebral and cerebellar parenchymal volume loss. Moderate leukoaraiosis. No acute osseous findings. IMPRESSION: No acute cardiopulmonary findings. Dictated by: Dictated on workstation # [id number]
--- NOTE | 2020-07-21 06:45 | Diagnostic Imaging Report ---
PROCEDURE: CT angiography of the head and CT angiography of the neck with and without contrast. TECHNIQUE: Contiguous noncontrast images were obtained from the skull base through the vertex. After intravenous contrast administration, helical CT angiography of the neck was performed. Source data was reformatted into 3D MIP projections. Delayed post contrast acquisition was also obtained. Auto Exposure Controls were utilized during the CT exam to meet ALARA standards for radiation dose reduction. INDICATION: Stroke. Altered mental status. Difficulty concentrating. COMPARISON: CT head without contrast 07/21/2020. FINDINGS: Delayed postcontrast imaging demonstrates no large intracranial hemorrhage or territorial infarction. No hydrocephalus or extra-axial fluid collections. No abnormal intracranial enhancement. CTA demonstrates a left common carotid originating from the innominate. The basilar, bilateral vertebral, common carotid, internal carotid, anterior cerebral, middle cerebral and posterior cerebral arteries demonstrate no high-grade stenosis, aneurysm or dissection. Moderate spondylotic changes at C5-C7. No acute osseous findings. The visualized paravertebral soft tissues are unremarkable. Lung apices are clear. IMPRESSION: No high-grade arterial narrowing, aneurysm or dissection involving major arteries in the head and neck. Agree with preliminary interpretation. Dictated by: Dictated on workstation # [id number]
[2020-07-21 07:25] VITALS: BP 186/99
[2020-07-21] MEDS: DOCUSATE SODIUM 100 MG (COLACE) CAP PO SCH (08:49)
[2020-07-21] MEDS ORDERED: ASPIRIN E.C. 325 MG (ECOTRIN) TABLET PO SCH (09:00)
[2020-07-21] MEDS ORDERED: ASPIRIN 300 MG (5 GR) SUPPOSITORY PR SCH (09:00)
--- NOTE | 2020-07-21 10:24 | History & Physical-Hospitalist ---
History of Present Illness HPI/Chief Complaint Pt is a 75yoCM who presented to the ER duet o weakness and concern for stroke. She was recently diagnosed with a UTI as an outpatient and was started on on abx but her brother noticed she was quite weak yesterday and brought her in for evaluation. She had no focal deficits or slureed speech. She has a few month history of general cognitive decline and has been following with Dr De La Cruz for that. She does not recall everything that brought her to the hospital but she is aware she is developing dementia and will forget her words at times and her train of thought. She otherwise has not complaints and states she is feeling normal today. Source: patient Date Seen 07/21/20 Time Seen by a Provider: 09:30 Attending Physician Niles Olsen MD PCP No,Local Physician Referring Physician Date of Admission Jul 21, 2020 at 02:15 Home Medications & Allergies Home Medications Reviewed patient Home Medication Reconciliation performed by pharmacy medication reconciliations preparatory technician and/or nursing. Patients Allergies have been reviewed. Allergies Allergies Coded Allergies amoxicillin (Verified Allergy, Intermediate, 05/10/20) cephalexin (Verified Allergy, Intermediate, 05/10/20) ciprofloxacin (Verified Allergy, Intermediate, 05/10/20) clavulanic acid (Verified Allergy, Intermediate, 05/10/20) erythromycin base (Verified Allergy, Intermediate, 05/10/20) hydrocodone (Verified Allergy, Intermediate, 05/10/20) sulfamethoxazole (Verified Allergy, Intermediate, 05/10/20) trimethoprim (Verified Allergy, Intermediate, 05/10/20) Uncoded Allergies CLAVULANATE ( Allergy, Intermediate, 05/10/20) Past Rzvhyhc-Zddhtm-Ucclgx Hx Patient Social History Marrital Status: single Employed/Student: retired Tobacco Use?: No Smoking Status: Former Smoker Substance use?: No Alcohol Use?: No Pt feels they are or have been: No Seasonal Allergies Seasonal Allergies: Yes Current Status status: No Advance Directives: No Communicates: Verbally Primary Language: Armenian Is interpretation needed?: No Sensory deficits: Vision impairment Implanted or Applied Medical D: None Past Medical History Surgeries: Hysterectomy COPD Cardiomyopathy, Hypertension Neuropathy Arthritis, Fibromyalgia, Chronic Back Pain Cataract Anxiety, Depression Recent Skin Changes Blood Disorders: No Family Medical History Reviewed Nursing Family Hx No Pertinent Family Hx Review of Systems Constitutional: No chills, No fever EENTM: no symptoms reported Respiratory: No cough, No short of breath Cardiovascular: No chest pain, No edema, No palpitations Gastrointestinal: No abdominal pain, No constipation, No diarrhea, No nausea, No vomiting Genitourinary: see HPI Musculoskeletal: muscle weakness Skin: no symptoms reported Psychiatric/Neurological: No Symptoms Reported Physical Exam Physical Exam Vital Signs Vital Signs - First Documented Capillary Refill : Less Than 3 Seconds Height, Weight, BMI Height: '" Weight: lbs. oz. kg; 45.23 BMI Method: General Appearance: No Apparent Distress, Chronically ill, Obese HEENT: PERRL/EOMI, Moist Mucous Membranes; No Scleral Icterus (L), No Scleral Icterus (R) Neck: Normal Inspection, Supple Respiratory: Lungs Clear, No Accessory Muscle Use, No Respiratory Distress Cardiovascular: Regular Rate, Rhythm, No Murmur Gastrointestinal: Normal Bowel Sounds, Non Tender, Soft Extremity: Normal Capillary Refill, No Calf Tenderness, No Pedal Edema Neurologic/Psychiatric: Alert, Oriented x3 (word finding difficulty occasionally), Normal Mood/Affect Skin: Normal Color, Warm/Dry Results Results/Procedures Labs Patient resulted labs reviewed. Imaging: Reviewed Imaging Report Imaging [facility], [place] NAME: YECENIA DE OLIVEIRA [facility] REC#: [id number] PT STATUS: ADM Tala : 1945 PHYSICIAN: CROW CURRIE MD ADMIT DATE: 07/21/20 Signed Date of Exam:07/21/20 CT HEAD WO-R/O STROKE PROCEDURE: CT head wo r/o stroke. TECHNIQUE: Multiple contiguous axial images were obtained through the brain without the use of intravenous contrast. Auto Exposure Controls were utilized during the CT exam to meet ALARA standards for radiation dose reduction. INDICATION: Stroke. Altered mental status. Difficulty concentrating. COMPARISON: None. FINDINGS: No CT evidence of a territorial infarction. No intracranial hemorrhage, mass effect, hydrocephalus or extra-axial fluid collections. Moderate generalized cerebral and cerebellar parenchymal volume loss. Moderate leukoaraiosis. No acute osseous findings. IMPRESSION: No acute cardiopulmonary findings. Dictated by: Dictated on workstation # [id number] Dict: 07/21/20 06 Trans: 07/21/20 1056 YUDI [id number] Interpreted by: NETTIE BAKER MD Electronically signed by: NETTIE BAKER MD 07/21/20 105 [facility] [place] NAME: YECENIA DE OLIVEIRA [facility] REC#: [id number] PT STATUS: ADM Tala : 1945 PHYSICIAN: CROW CURRIE MD ADMIT DATE: 07/21/20 Signed Date of Exam:07/21/20 CT ANGIO HEAD/NECK PROCEDURE: CT angiography of the head and CT angiography of the neck with and without contrast. TECHNIQUE: Contiguous noncontrast images were obtained from the skull base through the vertex. After intravenous contrast administration, helical CT angiography of the neck was performed. Source data was reformatted into 3D MIP projections. Delayed post contrast acquisition was also obtained. Auto Exposure Controls were utilized during the CT exam to meet ALARA standards for radiation dose reduction. INDICATION: Stroke. Altered mental status. Difficulty concentrating. COMPARISON: CT head without contrast 07/21/2020. FINDINGS: Delayed postcontrast imaging demonstrates no large intracranial hemorrhage or territorial infarction. No hydrocephalus or extra-axial fluid collections. No abnormal intracranial enhancement. CTA demonstrates a left common carotid originating from the innominate. The basilar, bilateral vertebral, common carotid, internal carotid, anterior cerebral, middle cerebral and posterior cerebral arteries demonstrate no high-grade stenosis, aneurysm or dissection. Moderate spondylotic changes at C5-C7. No acute osseous findings. The visualized paravertebral soft tissues are unremarkable. Lung apices are clear. IMPRESSION: No high-grade arterial narrowing, aneurysm or dissection involving major arteries in the head and neck. Agree with preliminary interpretation. Dictated by: Dictated on workstation # [id number] Dict: 07/21/20624 Trans: 07/21/20 105 [id number] [id number] Interpreted by: NETTIE BAKER MD Electronically signed by: NETTIE BAKER MD 07/21/20 105 Assessment/Plan Admission Diagnosis Generalized weakness Admission Status: Observation Assessment and Plan Generalized Weakness Dementia UTI PT/OT SECOND OFFICER ordered Continue ASA MRI to evaluate for acute ischemia Continue on abx prescribed as an outpatient If MRI negative can DC home I have attempted to call pt's brother at listed number multiple times with no answer Clinical Quality Measures Stroke: Date of last known well: Jul 20, 2020 Time of last known well: 19:00 Symptoms onset unknown: Yes NILES OLSEN MD Jul 21, 2020 10:24
[2020-07-21 11:35] VITALS: BP 181/104
[2020-07-21] MEDS ORDERED: MULT-1029 PO (11:44)
[2020-07-21] MEDS ORDERED: HYDR-700 PO (11:44)
[2020-07-21] MEDS ORDERED: OXYC1TAB11 PO (11:44)
[2020-07-21] MEDS ORDERED: CALC600T80 PO (11:44)
--- NOTE | 2020-07-21 11:52 | Physical Therapy Evaluation ---
PT Evaluation-General Medical Diagnosis Admission Date Jul 21, 2020 at 02:15 Medical Diagnosis: CVA vs. TIA Onset Date: Jul 20, 2020 Therapy Diagnosis Therapy Diagnosis: debility/weakness Precautions Precautions/Isolations: Fall Prevention, Standard Precautions Referral Physician: Liberty Reason for Referral: Evaluation/Treatment Medical History Pertinent Medical History: COPD, Heart Failure, HTN, Neuropathy Current History EMS secondary to weakness, heart palpations and difficulty with word find Reviewed History: Yes Social History Home: Single Level Current Living Status: Other Family Prior Prior Level of Function SCALE: Activities may be completed with or without assistive devices. 1-Imswfogspz-bsudkgu completes the activity by him/herself with no assistance from a helper. 5-Set-up or Clean-up Assistance-helper sets up or cleans up; patient completes activity. [place] assists only prior to or following the activity. 4-Supervision or Touching Assistance-helper provides verbal cues and/or touching/steadying and/or contact guard assistance as patient completes activity. Assistance may be provided throughout the activity or intermittently. 3-Partial/Moderate Assistance-helper does LESS THAN HALF the effort. [place] lifts, holds or supports trunk or limbs, but provides less than half the effort. 2-Substantial/Maximal Assistance-helper does MORE THAN HALF the effort. [place] lifts or holds trunk or limbs and provides more than half the effort. 2-Spmdkiehw-rbvwfv does ALL the effort. Patient does none of the effort to complete the activity. Or, the assistance of 2 or more helpers is required for the patient to complete the activity. If activity was not attempted, code reason: 7-Patient Refused. 9-Not Applicable-not attempted and the patient did not perform the activity before the current illness, exacerbation or injury. 10-Not Attempted due to Environmental Limitations-(lack of equipment, weather restraints, etc.). 88-Not Attempted due to Medical Conditions or Safety Concerns. Bed Mobility: 6 Transfers (B,C,W/C): 6 Gait: 6 Prior Devices Use: Walker PT Evaluation-Current Subjective Patient c/o 7/10 finger pain secondary to biting her fingernails. RN notified. Pain Numeric Pain Scale: 7 Location: Right, Left Location Body Site: Finger Pain Description: Throbbing Objective Patient Orientation: Normal For Age ROM/Strength ROM Lower Extremities bilateral LE WFL Strength Lower Extremities 4/5 grossly bilateral LE Integumentary/Posture Integumentary refer to nursing notes Bowel Incontinence: No Bladder Incontinence: No Posture WFL Neuromuscular (Tone, Coordination, Reflexes) grossly intact Sensory Vision: Wears Glasses Hearing: Functional Transfers Roll Left to Right (QC): 6 Lying to Sitting/Side of Bed(Q: 6 Sit to Stand (QC): 6 Chair/Nov-iv-Ssmob Xfer(QC): 6 Gait Does the Patient Walk?: Yes Mode of Locomotion: Walk Anticipated Mode of Locomotion: Walk Walk 10 feet (QC): 6 Walk 50 ft with 2 Turns(QC): 6 Walk 150 ft (QC): 6 Distance: 250' Gait Assistive Device: FWW Comments/Gait Description very slow, steady gait sequence Balance Sitting Static: Normal Sitting Dynamic: Normal Standing Static: Normal Standing Dynamic: Normal Assessment/Needs 75 y.o. female,is currently at [facility] with all gross motor skills safely and does not require skilled therapy intervention. Rehab Potential: Fair PT Plan Treatment/Plan Treatment Plan: Discontinue PT, goals met Treatment Duration: Jul 21, 2020 Frequency: 1 time per week Estimated Hrs Per Day: .25 hour per day Patient and/or Family Agrees t: Yes Time/GCodes Time In: 1056 Time Out: 1110 Total Billed Treatment Time: 14 Total Billed Treatment 1 visit EVMod 14 min MAYDA JUNE PT Jul 21, 2020 11:52
[2020-07-21] MEDS ORDERED: ASPI-1238 PO (11:57)
[2020-07-21] MEDS ORDERED: DOXY100C2 PO (11:57)
--- NOTE | 2020-07-21 11:58 | Occupational Therapy Eval ---
OT Evaluation-General/PLF Medical Diagnosis Admission Date Jul 21, 2020 at 02:15 Medical Diagnosis: CVA vs TIA suspected Onset Date: Jul 20, 2020 Therapy Diagnosis Therapy Diagnosis: decreased ADL status Precautions Precautions/Isolations: Fall Prevention, Standard Precautions Referral Physician: Liberty Referral Reason: Evaluation/Treatment Medical History Pertinent Medical History: Arthritis, COPD, HTN, Neuropathy Additional Medical History cardiomyopathy, cataract, anxiety/depression Current History ED via EMS c/o palpitations, difficulty lifting arms up. Social History Home: Single Level Current Living Status: Other Family (brother) ADL-Prior Level of Function SCALE: Activities may be completed with or without assistive devices. 3-Bldpuzbvjn-oxjhpms completes the activity by him/herself with no assistance from a helper. 5-Set-up or Clean-up Assistance-helper sets up or cleans up; patient completes activity. [place] assists only prior to or following the activity. 4-Supervision or Touching Assistance-helper provides verbal cues and/or touching/steadying and/or contact guard assistance as patient completes activity. Assistance may be provided throughout the activity or intermittently. 3-Partial/Moderate Assistance-helper does LESS THAN HALF the effort. [place] lifts, holds or supports trunk or limbs, but provides less than half the effort. 2-Substantial/Maximal Assistance-helper does MORE THAN HALF the effort. [place] lifts or holds trunk or limbs and provides more than half the effort. 2-Iefbnvbfi-cuibyo does ALL the effort. Patient does none of the effort to complete the activity. Or, the assistance of 2 or more helpers is required for the patient to complete the activity. If activity was not attempted, code reason: 7-Patient Refused. 9-Not Applicable-not attempted and the patient did not perform the activity before the current illness, exacerbation or injury. 10-Not Attempted due to Environmental Limitations-(lack of equipment, weather restraints, etc.). 88-Not Attempted due to Medical Conditions or Safety Concerns. ADL PLOF Comments Pt reports having home health aide to assist wtih cooking/cleaning/bathi ng/dressing. Pt unable to recall how often she has assistance. Pt later states she is able to bathe and dress herself independently, so PLOF unknown at this time. Self Care: Unknown Functional Cognition: Unknown DME/Equipment: Tub/Shower OT Current Status Subjective Pt seated in recliner, agreeable to OT tx. Pt easily distracted throughout session and would easily lose her train of thought in the middle of a sentence. Mental Status/Objective Patient Orientation: Person, Confused, Place, Situation Current Glasses/Contacts: Yes Hand Dominance: Right Upper Extremity ROM WFL, BUE shoulder flexion to approx 110 degrees Upper Extremity Coordination WFL Upper Extremity Sensation Pt reports "throbbing" in distal phalanx of all fingers, stating it is "past tingling" ADL-Treatment Eating (QC): 6 (Per pt report, IND with eating) Oral Hygiene (QC): 5 (set up assist using oral swab (pt declined using toothbrush due to sores in mouth)) Toileting Hygiene (QC): 7 Other Treatments Pt seated in recliner, OT educated pt on purpose and benefit of OT, she verb alized understanding. Pt provided information about PLOF and home set up, and participated in UE screen. Throughout discussion, pt would stop talking mid sentence and forget what she was about to say. She was also easily distracted throughout tx. Pt agreeable to oral care using swab. States a toothbrush is too aggressive with the sores in her mouth. Pt able to complete oral care with set up assist. Pt declined need to toilet or further ADLs at this time. OT educated pt on benefit of bath bench vs bath chair, with recommendations of bath bench. OT educated pt on POC while she is admitted, she verbalized understanding. Post tx, pt seated in recliner, call light in reach and all need met. Education OT Patient Education: Correct positioning, Energy conservation, Exercise program, Modified ADL techniques, Progress toward Goal/Update tx plan, Purpose of tx/functional activities Teaching Recipient: Patient Teaching Methods: Discussion Response to Teaching: Verbalize Understanding OT Shelter Goals Shelter Goals Time Frame: Jul 28, 2020 Eating (QC): 6 Oral Hygiene (QC): 6 Toileting Hygiene (QC): 6 Shower/Bathe Self (QC): 4 Upper Body Dressing (QC): 5 Lower Body Dressing (QC): 4 On/Off Footwear (QC): 4 Additional Goals: 1-Demonstrate ADL Tasks, 2-Verbalize Understanding, 3- ImproveStrength/Willy 1=Demonstrate adherence to instructed precautions during ADL tasks. 2=Patient will verbalize/demonstrate understanding of assistive devices/modifications for ADL. 3=Patient will improve strength/tolerance for activity to enable patient to perform ADL's. OT Education/Plan Problem List/Assessment Assessment: Decreased Activ Tolerance, Decreased UE Strength, Impaired I ADL's, Impaired Self-Care Skills Discharge Recommendations Plan/Recommendations: Continue POC Treatment Plan/Plan of Care Patient would benefit from OT for education, treatment and training to promote independence in ADL's, mobility, safety and/or upper extremity function for ADL's. Plan of Care: ADL Retraining, Functional Mobility, UE Funct Exercise/Act Treatment Duration: Jul 28, 2020 Frequency: 5 times per week Estimated Hrs Per Day: .25 hour per day Rehab Potential: Good Time/GCodes Start Time: 11:15 Stop Time: 11:30 Total Time Billed (hr/min): 15 Billed Treatment Time 1, TELLO ADAMS OT Jul 21, 2020 11:58
--- NOTE | 2020-07-21 13:21 | Diagnostic Imaging Report ---
PROCEDURE: MR imaging of the brain without contrast. TECHNIQUE: Multiplanar, multisequence MR imaging of the brain was performed without contrast. INDICATION: Syncope. FINDINGS: There are no prior MRI brain examinations available for comparison. The CTA head exam performed earlier today failed to show any sign of an acute intracranial abnormality. The subsequent CTA head and neck exam also failed to show any sign of an acute abnormality of the intracranial circulation or of the neck. There was no sign of an aneurysm either. On the diffusion series of this exam, there is no abnormal signal arising from the brain to suggest an area of acute ischemia. There is no mass, shift of the midline, or hemorrhage to indicate an acute abnormality either. The ventricles are not abnormally dilated. The left lateral ventricle is larger than the right. This is a developmental variant. On the FLAIR axial series, there are focal and diffuse areas of increased signal in the periventricular white matter bilaterally. These findings are nonspecific but may well be secondary to encephalomalacia from microvascular ischemia. There is also cortical atrophy present. The degree of atrophy is consistent with the patient's age. The sella is not enlarged and the expected carotid flow voids are evident bilaterally. The orbits are symmetrical and within normal limits. The sinuses where visualized are clear. The seventh and eighth nerve complexes are unremarkable. IMPRESSION: There is no evidence for an acute intracranial abnormality. In particular, there is no abnormal signal arising from the brain on the diffusion series that would suggest an area of acute ischemia. Dictated by: Dictated on workstation # [id number]
--- NOTE | 2020-07-21 14:21 | ST Cognitive Linguistic Eval ---
Speech Evaluation-General Medical Diagnosis CVA vs TIA suspected Onset Date: Jul 20, 2020 Therapy Diagnosis Therapy Diagnosis: Cognitive-communication Referral Referring Physician: Dr. Koenig Medical History Pertinent Medical History: Arthritis, COPD, HTN, Neuropathy Reviewed History: Yes Social History Current Living Status: Other Family (brother) Speech PLF-Current Status Prior Level of Function Patient lives in her home with her disabled brother. She states they assist each other. Subjective Patient was pleasant and cooperative with the cognitive assessment. Language Eval: Auditory Comprehends Simple Yes/No Ques: Functional Indent/Objects Multiple Sosa: Functional Ident/Pics in Multiple Sosa: Mild Follows 1-Step Commands: Mild Follows Complex Directions: Moderate Follows General Conversations: Moderate Language Eval: Verbal Language Completes Spontaneous Greeting: Functional Produces Auto, Serial Info: Mild Imitates Simple Words/Phrases: Mild Word Finding: Moderate Requests Basic Needs: Mild States Basic Personal Info: Mild Expresses Complex Ideas: Moderate Objective Cognitive Domain Attention: Mild Memory: Mild Problem Solving: Mild Executive Functions: Mild Visuospatial Skills: WNL Composite Severity Rating: Moderate Clock Drawing Severity Rating: Moderate Objective Formal/Standardized Tests [facility] Mental Status (UMS) Results , Moderate Dementia range of function Oral Motor/Speech Production Within Normal Limits Impression Patient is a pleasantly confused 75 y/o female who was admitted to the hospital with CVA symptoms. Patient was evaluated per physician referral at bedside with the UMS and informal speech tasks. The patient scored within the moderate dementia range which indicates a need for further ST services. Patient's concentration and recall of words/info is her most noted deficits. Patient states she plans on returning to her home where she lives with her ill brother. Speech-Plan Treatment Plan Rehab Potential: WENCESLAO Yanes Jul 21, 2020 14:21
--- NOTE | 2020-07-21 14:29 | ST Cognitive Linguistic Eval ---
Speech Evaluation-General Medical Diagnosis CVA vs TIA suspected Onset Date: Jul 20, 2020 Therapy Diagnosis Therapy Diagnosis: Cognitive-communication Referral Referring Physician: Dr. Koenig Medical History Pertinent Medical History: Arthritis, COPD, HTN, Neuropathy Reviewed History: Yes Social History Current Living Status: Other Family (brother) Speech PLF-Current Status Prior Level of Function Patient lives in her own home with her medically ill brother. She states they take care of each other. Subjective Patient was pleasant during the evaluation. She was noted to forget what she was saying frequently while answering questions. Her word finding skills are moderately disordered as well. Language Eval: Auditory Comprehends Simple Yes/No Ques: Functional Indent/Objects Multiple Sosa: Functional Ident/Pics in Multiple Sosa: Mild Follows 1-Step Commands: Mild Follows Complex Directions: Moderate Follows General Conversations: Moderate Language Eval: Verbal Language Completes Spontaneous Greeting: Functional Produces Auto, Serial Info: Mild Imitates Simple Words/Phrases: Mild Word Finding: Moderate Requests Basic Needs: Moderate States Basic Personal Info: Moderate Expresses Complex Ideas: Moderate Objective Cognitive Domain Attention: Mild Memory: Mild Problem Solving: Moderate Executive Functions: Moderate Visuospatial Skills: WNL Composite Severity Rating: Moderate Clock Drawing Severity Rating: Moderate Objective Formal/Standardized Tests [facility] Mental Status (UMS) Results , Moderate Dementia range of function Oral Motor/Speech Production Within Normal Limits Impression Patient is a pleasantly confused 75 y/o female who was admitted to the hospital due to CVA symptoms. The patient was evaluated at bedside with the SLUMS and informal speech tasks. The patient scored within the moderate dementia range of function. Speech therapy is indicated with moderate deficits noted in the word finding and information processing areas. ST will treat the patient with focus on these areas of deficit. Speech Short Term Goals Short Term Goals Short Term Goals 1) Patient will complete word finding tasks related to her daily needs at 80% or greater with minimal cuing. 2) Patient will complete safety awareness tasks related to her daily needs at 80% or greater with minimal cuing. 3) Patient will complete problem solving tasks related to her daily needs at 80% or greater with minimal cuing. Speech Pool Technician Goals Mcfp Goals Patient will improve word finding and processing abilities so that she can complete daily tasks with minimal assist. Speech-Plan Patient/Family Goals Patient/Family Goals: Patient plans on returning to her home where she lives with her medically ill brother. Treatment Plan Speech Therapy Treatment Plan: Continue Plan of Care Treatment Duration: Jul 26, 2020 Frequency: 3 times per week Estimated Hrs Per Day: .25 hour per day Rehab Potential: Good Barriers to Learning: Patient's decreased cognitive function, age Pt/Family Agrees to Plan: Yes Safety Risks/Education Teaching Recipient: Patient Teaching Methods: Discussion Response to Teaching: Verbalize Understanding Education Topics Provided: Safety within her room, utilization of call light for assistance Time Speech Therapy Time In: 10:30 Speech Therapy Time Out: 10:45 Total Billed Time: 15 Billed Treatment Time 1, AMBERLY VILLAFUERTE BETHANIA ST Jul 21, 2020 14:29
--- NOTE | 2020-07-21 14:37 | Discharge Inst-Simple/Standard ---
Discharge Inst-Standard Patient Instructions/Follow Up Plan of Care/Instructions/FU: Please continue to take your medications as written. Please follow up with your primary care doctor to follow up this hospital stay. Activity as Tolerated: Yes Discharge Diet: No Restrictions Return to The Hospital For: Chest pain, shortness of breath, fever, confusion, weakness, if you feel you are getting worse. NILES MENENDEZ MD Jul 21, 2020 14:36
[2020-07-21] MEDS ORDERED: cloNIDine 0.1 MG (CATAPRES) TAB PO NR (14:45)
[2020-07-21] MEDS ORDERED: oxyCODONE/APAP 5/325MG (PERCOCET 5) TABLET PO PRN (14:45)
[2020-07-21] MEDS ORDERED: NON-FORMULARY MEDICATION 1 EA EA (Hydroxyzine HCl 25 MG) PO PRN (14:45)
[2020-07-21] MEDS ORDERED: ALPRAZolam 1 MG (XANAX) TAB PO PRN (14:45)
[2020-07-21] MEDS ORDERED: NON-FORMULARY MEDICATION 1 EA EA (Fluticasone Propionate 2 SPRAY) NSEACH PRN (14:45)
[2020-07-21] MEDS ORDERED: polyethylene glycoL POWDER 17 GM (MIRALAX) PACK PO PRN (14:45)
[2020-07-21] MEDS ORDERED: FLUTICASONE NASAL SPRAY (FLONASE) 16 GM BTL NS PRN (15:00)
[2020-07-21] MEDS ORDERED: hydrOXYzine (VISTARIL/ATARAX) 25 MG capsule/tablet PO PRN (15:00)
[2020-07-21 16:00] VITALS: BP 141/80
[2020-07-21] MEDS: CALCIUM CARBONATE 600 MG (CALCARB) TAB PO SCH (17:56)
[2020-07-21 19:44] VITALS: BP 103/84
[2020-07-21] MEDS: DOXYCYCLINE 100 MG (VIBRAMYCIN) TABLET PO SCH (20:49)
[2020-07-21] MEDS ORDERED: QUETIAPINE FUMARATE PO SCH (21:00)
[2020-07-21] MEDS ORDERED: NON-FORMULARY MEDICATION 1 EA EA (Doxycycline Hyclate 100 MG) PO SCH (21:00)
[2020-07-21] MEDS ORDERED: SIMvastatin 40 MG (ZOCOR) TAB PO SCH (21:00)
[2020-07-21] MEDS ORDERED: NON-FORMULARY MEDICATION 1 EA EA (Ramipril 10 MG) PO SCH (21:00)
[2020-07-21] MEDS ORDERED: QUEtiapine 100 MG (SEROquel) TAB IMMEDIATE RELEASE PO SCH (21:00)
[2020-07-21] MEDS: RAMIPRIL 5 MG (ALTACE) CAP PO SCH (21:00)
[2020-07-21] MEDS: cloNIDine 0.1 MG (CATAPRES) TAB PO SCH (21:00)
[2020-07-21 23:54] VITALS: BP 124/72
[2020-07-22 03:40] VITALS: BP 161/85
[2020-07-22 05:29] LABS: TRIGLYCERIDES 41 MG/DL (<150); VLDL CHOLESTEROL 8 MG/DL (5-40)
[2020-07-22 05:34] LABS: CHOLESTEROL 118 MG/DL (< 200); HDL CHOLESTEROL 51 MG/DL (40-60)
[2020-07-22] MEDS ORDERED: MULTIVIT W/MINERALS TAB (THERAGRAN M) PO SCH (07:00)
--- NOTE | 2020-07-22 07:48 | Progress Note - Hospitalist ---
Subjective HPI/CC On Admission Date Seen by Provider: Jul 22, 2020 Time Seen by Provider: 07:44 Subjective/Events-last exam Pt reports doing well. No complaints. Plan to DC hoem today. Couldn't yesterday due to transportation issues. Objective Exam Vital Signs Vital Signs Date Time Temp Pulse Resp B/P (MAP) Pulse Ox O2 Delivery O2 Flow Rate FiO2 07/22/20 07:00 76 07/22/20 03:40 35.7 17 161/85 (110) 97 Room Air Capillary Refill : Less Than 3 Seconds General Appearance: No Apparent Distress, WD/WN, Chronically ill, Obese Respiratory: Lungs Clear, No Respiratory Distress Cardiovascular: Regular Rate, Rhythm, No Murmur Results/Procedures Lab Patient resulted labs reviewed. Assessment/Plan Assessment and Plan Assess & Plan/Chief Complaint Generalized Weakness Dementia UTI Seen by PT and did well MRI negative for acute infarct Continue on abx prescribed as an outpatient DC home today Diagnosis/Problems Diagnosis/Problems (1) Weakness Status: Acute (2) Dementia Qualifiers: Dementia type: unspecified type Dementia behavioral disturbance: without behavioral disturbance Qualified Codes: F03.90 - Unspecified dementia without behavioral disturbance (3) UTI (urinary tract infection) Qualifiers: Urinary tract infection type: acute cystitis Hematuria presence: without hematuria Qualified Codes: N30.00 - Acute cystitis without hematuria Clinical Quality Measures Stroke: Date of last known well: Jul 20, 2020 Time of last known well: 19:00 Symptoms onset unknown: Yes NILES MENENDEZ MD Jul 22, 2020 07:48
[2020-07-22] MEDS ORDERED: MAGNESIUM OXIDE (MAG-OX)400 MG TAB PO SCH (08:00)
[2020-07-22 08:01] VITALS: BP 158/95
[2020-07-22] MEDS: cloNIDine 0.1 MG (CATAPRES) TAB PO SCH (08:25)
[2020-07-22] MEDS: DOXYCYCLINE 100 MG (VIBRAMYCIN) TABLET PO SCH (08:25)
[2020-07-22] MEDS: CALCIUM CARBONATE 600 MG (CALCARB) TAB PO SCH ×2 (08:25→13:47)
[2020-07-22] MEDS: DOCUSATE SODIUM 100 MG (COLACE) CAP PO SCH (08:25)
[2020-07-22] MEDS: RAMIPRIL 5 MG (ALTACE) CAP PO SCH (08:26)
[2020-07-22] MEDS ORDERED: NON-FORMULARY MEDICATION 1 EA EA (Multivit-Min/FA/Lycopene/Lut (Centrum Silver Tablet) 1 E PO SCH (09:00)
[2020-07-22] MEDS ORDERED: NON-FORMULARY MEDICATION 1 EA EA (Magnesium Oxide 400 MG) PO SCH (09:00)
[2020-07-22] MEDS ORDERED: ASPIRIN E.C. 81 MG (ECOTRIN) TAB PO SCH (09:00)
[2020-07-22] MEDS ORDERED: PANTOPRAZOLE 40 MG (PROTONIX) TAB PO SCH (09:00)
[2020-07-22] MEDS ORDERED: LORATADINE (CLARITIN) 10 MG TAB PO SCH (09:00)
[2020-07-22 11:44] VITALS: BP 114/76
[2020-07-22 14:00] VITALS: BP 114/76
== END 2020-07-22 14:00 | disposition home or self-care (01) ==
LOC: EDUNIT# 23:08 → ER 23:09 → 4TH 23:10 → UNDOADMOB 07-21 02:15 → 4TH 07-21 02:15 → UNDODISOB 07-22 14:30
PROVIDERS: ADMIT Internal Medicine; ATTEND Family Medicine
DX: R53.1 Weakness (principal); F03.90 Unspecified dementia, unspecified severity, without behavioral disturbance, psychotic disturbance, mood disturbance, and anxiety; I63.9 Cerebral infarction, unspecified; I10 Essential (primary) hypertension; J44.9 Chronic obstructive pulmonary disease, unspecified; I42.9 Cardiomyopathy, unspecified; G62.9 Polyneuropathy, unspecified; M19.90 Unspecified osteoarthritis, unspecified site; G89.29 Other chronic pain; M54.9 Dorsalgia, unspecified; G93.40 Encephalopathy, unspecified; N30.00 Acute cystitis without hematuria; F32.9 Major depressive disorder, single episode, unspecified; F41.9 Anxiety disorder, unspecified; Z79.891 Long term (current) use of opiate analgesic; Z79.899 Other long term (current) drug therapy; Z87.891 Personal history of nicotine dependence; Z90.710 Acquired absence of both cervix and uterus
CPT/HCPCS: 70450; 70496; 70498; 70551; 71045; 80053; 80061; 81000; 82947; 83880; 84484; 85025; 92507; 92523; 93005; 93041; 97162; 97166; 99284; G0378; 36415